=== PATIENT | male | born 1940 | race Caucasian/White ===

== ENCOUNTER → 2020-08-06 | Outpatient (CLI) | payer MEDICARE, OTHER ==
[~2020-08-06] MED LIST: ATORVASTATIN CA20 MG PO; DEXAMETHASONE6 MG PO; ELIQUIS2.5 MG PO; IMDUR ER TAB 3030 MG PO; LOPRESSOR 25 MG25 MG PO
[2020-08-06 10:32] LABS: RED BLOOD COUNT 5.15 M/UL (4.20-5.50)
[2020-08-06 10:53] LABS: BUN/CREATININE RATIO 25 (0-10)
== END ==
LOC: LAB 10:09
PROVIDERS: Emergency Medicine
DX: I10 Essential (primary) hypertension (principal); I27.82 Chronic pulmonary embolism
CPT/HCPCS: 36415; 80053; 85025

== ENCOUNTER → 2020-08-20 | Outpatient (CLI) | payer MEDICARE, OTHER | LOC: CT 08:54 | DX: R31.0 Gross hematuria (principal); R59.0 Localized enlarged lymph nodes; K86.1 Other chronic pancreatitis | CPT/HCPCS: Q9967 ==

== ENCOUNTER → 2020-09-10 | Outpatient (CLI) | payer MEDICARE, OTHER ==
[2020-09-10 14:05] LABS: HEMOGLOBIN 16.3 gm/dl (14.0-17.5); RED BLOOD COUNT 5.22 M/UL (4.20-5.50); WHITE BLOOD COUNT 6.6 K/UL (4.5-11.0)
== END ==
LOC: LAB 13:07
PROVIDERS: Optometrist
DX: H46.8 Other optic neuritis (principal)
CPT/HCPCS: 36415; 85027; 85652; 86140

== ENCOUNTER → 2020-09-13 | Outpatient (CLI) | payer MEDICARE, OTHER | LOC: LAB 12:33 | DX: R31.0 Gross hematuria (principal); R03.0 Elevated blood-pressure reading, without diagnosis of hypertension | CPT/HCPCS: 36415 ==

== ENCOUNTER → 2020-11-19 | Outpatient (CLI) | payer MEDICARE, OTHER | LOC: CT 08:30 | DX: K86.1 Other chronic pancreatitis (principal) | CPT/HCPCS: 36415; 82565; Q9967 ==

== ENCOUNTER → 2022-03-13 | Outpatient (CLI) | payer MEDICARE, OTHER ==
[2022-03-13 10:37] LABS: HEMOGLOBIN 16.4 gm/dl (14.0-17.5); RED BLOOD COUNT 5.26 M/UL (4.20-5.50); WHITE BLOOD COUNT 7.3 K/UL (4.5-11.0)
[2022-03-13 11:06] LABS: BUN/CREATININE RATIO 15 (0-10)
== END ==
LOC: LAB 10:05
PROVIDERS: Emergency Medicine
DX: I10 Essential (primary) hypertension (principal); I82.592 Chronic embolism and thrombosis of other specified deep vein of left lower extremity; I27.82 Chronic pulmonary embolism; M15.8 Other polyosteoarthritis
CPT/HCPCS: 36415; 80053; 84443; 84550; 85025

== ENCOUNTER → 2022-03-21 | Outpatient (CLI) | payer MEDICARE, OTHER | LOC: CT 03-14 11:30 | DX: H47.019 Ischemic optic neuropathy, unspecified eye (principal); I63.9 Cerebral infarction, unspecified | CPT/HCPCS: 70498; Q9967 ==